=== PATIENT | male | born 1960 | race Caucasian/White ===

== ENCOUNTER → 2017-10-25 | Outpatient (CLI) | payer OTHER ==
--- NOTE | 2017-10-25 11:40 | RADIOLOGY IMAGING REPORT ---
FACILITY: [facility] PATIENT NAME: Bret Guzman : 1960 MR: [id number] V: [id number] EXAM DATE: ORDERING PHYSICIAN: MUNA BILLY TECHNOLOGIST[place] [facility] [place] Guz[place] : 1960 Visit/Account:[id number] Date of Sevice: 10/25/2017 Exam type: CHEST PA AND LAT History: Cough for over 10 years Comparison: None. Findings: Lungs are free of acute effusions, infiltrates or edema. No evidence of a pneumothorax or pneumomedi astinum. The cardiac silhouette is normal in size. The trachea is in midline. There are mild to mo derate spondylotic changes of the thoracic spine IMPRESSION: 1. No acute cardiopulmonary process is seen Report Dictated By: Debbie Zaman MD at 10/25/2017 11:35 AM Report E-Signed By: Debbie Zaman MD at 10/25/2017 11:36 AM WSN:[id number]
== END ==
LOC: RAD 10:41
PROVIDERS: ATTEND Physician Assistant Medical
DX: R05 Cough (principal)
CPT/HCPCS: 71046